=== PATIENT | male | born 1965 | race Caucasian/White ===

== ENCOUNTER 2018-03-27 17:31 | Emergency (ER) | payer OTHER ==
[~2018-03-27] VITALS: Ht 175.3 cm; Wt 69.2 kg
[2018-03-27 17:41] VITALS: BP 111/66
--- NOTE | 2018-03-27 17:46 | NUR ---
Wellington billings in [facility] - 03/27/18 at 1747 by DAISHA PT AMBULATES TO BED 7
--- NOTE | 2018-03-27 17:46 | NUR ---
PT AMBULATES TO BED 5
--- NOTE | 2018-03-27 17:48 | NUR ---
52/M BIB C/O LEFT CHEST TIGHTNESS THIS MORNING, DENIES ANY PAIN; TOOK ASA HX; BPH. RX; TAMSULOSIN. DENIES N/V/D; SKIN IS PINK/WARM/DRY; AAOX4 WITH EVEN AND STEADY GAIT; LUNGS CLEAR BL. PT DENIES ANY FEVER,SOB, OR COUGH AT THIS TIME; PATIENT STATES PAIN OF 2/10 AT THIS TIME; VSS; PATIENT POSITIONED FOR COMFORT; HOB ELEVATED; BEDRAILS UP X2; BED DOWN. ER MD MADE AWARE OF PT STATUS.
--- NOTE | 2018-03-27 18:06 | NUR ---
Dr. Marie evaluating patient at bedside.
[2018-03-27] MEDS ORDERED: ASPIRIN 81 MG TAB.CHEW PO ONE (18:10)
[2018-03-27] MEDS ORDERED: NITROGLYCERIN 0.4 MG TAB SL ONE (18:10)
--- NOTE | 2018-03-27 18:33 | NUR ---
X RAY AT BEDSIDE.
--- NOTE | 2018-03-27 19:12 | NUR ---
Pt report given to JUAN DEWITT. Transfer of care at this time.
[2018-03-27 19:23] LABS: BASOPHILS % (AUTO) 0.5 % (0.0-2.0); EOSINOPHILS # (AUTO) 0.2 K/uL (0-0.4); EOSINOPHILS % (AUTO) 2.5 % (0.0-4.0); HEMATOCRIT 39.9 % (36-52); HEMOGLOBIN 13.4 g/dL (12.0-18.0); LYMPHOCYTES # (AUTO) 3.2 K/uL (2.0-11.5); LYMPHOCYTES % (AUTO) 33.6 % (20.5-51.1); MEAN CORPUSCULAR HEMOGLOBIN 33 pg (27-31); MEAN CORPUSCULAR HGB CONC 34 g/dL (33-37); MEAN CORPUSCULAR VOLUME 97.4 fL (80-94); MONOCYTES # (AUTO) 1.1 K/uL (0.8-1.0); MONOCYTES % (AUTO) 11.2 % (1.7-9.3); NEUTROPHILS % (AUTO) 52.2 % (42.2-75.2); PLATELET COUNT (AUTO) 226 K/uL (140-450); RED CELL DISTRIBUTION WIDTH 12.3 % (11.6-13.7); WHITE BLOOD COUNT (AUTO) 9.7 K/uL (4.8-10.8)
--- NOTE | 2018-03-27 19:30 | NUR ---
DENIES ANY CHEST PAIN AT THIS TIME. VSS
[2018-03-27 19:39] LABS: ANION GAP 13.3 (8-16); CARBON DIOXIDE 25.4 mmol/L (21-32); CREATININE 1.1 mg/dL (0.7-1.3); POTASSIUM 3.7 mmol/L (3.5-5.1)
[2018-03-27 19:50] LABS: ALBUMIN 3.4 g/dL (3.4-5.0); TOTAL BILIRUBIN 0.2 mg/dL (0.0-1.0)
[2018-03-27 20:19] VITALS: BP 105/72
--- NOTE | 2018-03-27 20:19 | NUR ---
Patient discharged with v/s stable. Written and verbal after care instructions given and explained. Patient verbalized understanding. Ambulatory with steady gait. All questions addressed prior to discharge. Advised to follow up with PMD.
== END 2018-03-27 20:19 | disposition home or self-care (01) ==
LOC: MED 17:31
DX: R07.89 Other chest pain (principal)
CPT/HCPCS: 36415; 71045; 80053; 84484; 85025; 93005; 99285; Q0092